=== PATIENT | male | born 1965 | race African-American/Black ===

== ENCOUNTER 2023-05-28 09:44 | Day surgery (SDC) | payer BC ==
[2023-05-24 13:40] VITALS: BMI 40.6
[2023-05-28] MEDS ORDERED: fentaNYL 50 mcg/mL 1 mL Vial ONE (10:55)
[2023-05-28] MEDS ORDERED: Midazolam HCl 2 mg/2 ml Vial ONE (10:55)
[2023-05-28] MEDS ORDERED: PROPOFOL 60 ML ONE (11:21)
== END 2023-05-28 12:18 | disposition home or self-care (01) ==
LOC: CSHSDC 09:44
PROVIDERS: ATTEND Internal Medicine Gastroenterology
PROC: 0DJD8ZZ Inspection of Lower Intestinal Tract, Via Natural or Artificial Opening Endoscopic (ICD-10-PCS; principal; 2023-05-28)
DX: Z12.11 Encounter for screening for malignant neoplasm of colon (principal); K64.8 Other hemorrhoids; K57.30 Diverticulosis of large intestine without perforation or abscess without bleeding; I10 Essential (primary) hypertension; E11.9 Type 2 diabetes mellitus without complications; G47.33 Obstructive sleep apnea (adult) (pediatric); E66.9 Obesity, unspecified; Z68.41 Body mass index [BMI] 40.0-44.9, adult; Z86.718 Personal history of other venous thrombosis and embolism; Z91.041 Radiographic dye allergy status; Z79.84 Long term (current) use of oral hypoglycemic drugs; Z79.899 Other long term (current) drug therapy
CPT/HCPCS: J2250; J2704; J3010